=== PATIENT | male | born 1985 | race Caucasian/White ===

== ENCOUNTER 2021-06-10 10:23 | Outpatient (CLI) | payer OTHER | END 2021-06-10 10:24 | disposition home or self-care (01) | LOC: CSHCT 10:23 | PROVIDERS: ATTEND Internal Medicine Hematology & Oncology | DX: C20 Malignant neoplasm of rectum (principal); R22.41 Localized swelling, mass and lump, right lower limb; N13.30 Unspecified hydronephrosis; R19.00 Intra-abdominal and pelvic swelling, mass and lump, unspecified site | CPT/HCPCS: 71260; 74177 ==